=== PATIENT | female | born 1975 | race Caucasian/White ===

== ENCOUNTER 2019-08-14 19:39 | Emergency (ER) | payer OTHER ==
[~2019-08-14] VITALS: Ht 162.6 cm; Wt 94.8 kg
[~2019-08-14 19:39] MED LIST: AMBIEN10 MG PO; BACLOFEN20 MG PO; GLYBURIDE PO; NEU300 PO; VICTOZA6 MG/M1 SQ; XAN1 PO
[2019-08-14 19:52] VITALS: Ht 162.6 cm; Wt 94.8 kg
[2019-08-14 21:18] LABS: CARBON DIOXIDE 25.2 mmol/L (21-32); CHLORIDE SERUM 96 mmol/L (98-107); CREATININE SERUM 0.9 mg/dL (0.6-1.0); GFR1 > 60 mL/min; GLUCOSE SERUM 322 mg/dL (74-106); SODIUM SERUM 135 mmol/L (136-145)
[2019-08-14 21:19] LABS: BASOPHIL % 0 % (0-2); PLATELET COUNT 271 x10^3mcL (130-400); RED CELL DISTRIBUTION WIDTH 13.3 % (11.5-14.5)
[2019-08-14 21:22] LABS: ALBUMIN 4.2 g/dL (3.4-5.0); ALKALINE PHOSPHATASE 130 U/L (46-116); ALT/SGPT 26 U/L (14-59); AST/SGOT 11 U/L (15-37); BILIRUBIN TOTAL 0.8 mg/dL (0.20-1.00); LIPASE 97 IU/L (73-393)
[2019-08-14 21:23] LABS: TOTAL PROTEIN, SERUM 8.9 g/dL (6.4-8.2)
[2019-08-14 23:42] VITALS: BP 160/87
== END 2019-08-14 23:42 | disposition home or self-care (01) ==
LOC: ED 19:39
PROVIDERS: Emergency Medicine
DX: K29.70 Gastritis, unspecified, without bleeding (principal); E11.9 Type 2 diabetes mellitus without complications; E78.00 Pure hypercholesterolemia, unspecified; Z90.710 Acquired absence of both cervix and uterus
CPT/HCPCS: J2270; J2405; J7030

== ENCOUNTER 2019-11-09 22:01 | Emergency (ER) | payer OTHER ==
[~2019-11-09] VITALS: Ht 165.1 cm; Wt 94.3 kg
[2019-11-09 22:11] VITALS: Ht 165.1 cm; Wt 94.3 kg
[2019-11-10 00:27] LABS: PLATELET COUNT 284 x10^3mcL (130-400); RED CELL DISTRIBUTION WIDTH 13.3 % (11.5-14.5)
[2019-11-10 00:29] LABS: BASOPHIL % 1.7 % (0-2)
[2019-11-10 00:33] LABS: CALCIUM 8.8 mg/dL (8.5-10.1); CARBON DIOXIDE 25.6 mmol/L (21-32); CHLORIDE SERUM 95 mmol/L (98-107); CREATININE SERUM 0.8 mg/dL (0.6-1.0); GFR1 > 60 mL/min; GLUCOSE SERUM 287 mg/dL (74-106); POTASSIUM SERUM 3.5 mmol/L (3.5-5.1); SODIUM SERUM 133 mmol/L (136-145)
[2019-11-10 00:38] LABS: ALBUMIN 4.1 g/dL (3.4-5.0); ALKALINE PHOSPHATASE 93 U/L (46-116); ALT/SGPT 17 U/L (14-59); AST/SGOT 11 U/L (15-37); TOTAL PROTEIN, SERUM 8.2 g/dL (6.4-8.2)
[2019-11-10 01:15] VITALS: BP 152/51
== END 2019-11-10 01:15 | disposition home or self-care (01) ==
LOC: ED 22:01
PROVIDERS: Emergency Medicine
DX: R11.2 Nausea with vomiting, unspecified (principal); R10.9 Unspecified abdominal pain; E86.0 Dehydration; F12.90 Cannabis use, unspecified, uncomplicated
CPT/HCPCS: J2270; J2405; J7030

== ENCOUNTER 2019-11-11 20:44 | Emergency (ER) | payer OTHER ==
[~2019-11-11] VITALS: Ht 165.1 cm; Wt 92.1 kg
[2019-11-11 21:02] VITALS: Ht 165.1 cm; Wt 92.1 kg
[2019-11-11 22:49] LABS: BASOPHIL % 0.8 % (0-2); PLATELET COUNT 290 x10^3mcL (130-400); RED CELL DISTRIBUTION WIDTH 13.3 % (11.5-14.5)
[2019-11-11 22:55] LABS: CALCIUM 8.1 mg/dL (8.5-10.1); CARBON DIOXIDE 27.7 mmol/L (21-32); CREATININE SERUM 1.1 mg/dL (0.6-1.0); POTASSIUM SERUM 3.2 mmol/L (3.5-5.1)
[2019-11-11 22:59] LABS: ALBUMIN 3.6 g/dL (3.4-5.0); BILIRUBIN TOTAL 0.6 mg/dL (0.20-1.00)
[2019-11-11 23:39] LABS: AMPHETAMINE QUAL UR NONE DETECTED (See below)
[2019-11-12 00:49] VITALS: BP 106/75
== END 2019-11-12 00:49 | disposition home or self-care (01) ==
LOC: ED 20:44
PROVIDERS: Emergency Medicine
DX: F19.10 Other psychoactive substance abuse, uncomplicated (principal); E87.6 Hypokalemia; E86.0 Dehydration; E11.9 Type 2 diabetes mellitus without complications
CPT/HCPCS: 36415; 82962; J1885; J2765; U0003-CS

== ENCOUNTER 2019-12-30 14:59 | Emergency (ER) | payer OTHER ==
[~2019-12-30] VITALS: Ht 172.7 cm; Wt 93.4 kg
[2019-12-30 15:10] VITALS: Ht 172.7 cm; Wt 93.4 kg
[2019-12-30 15:52] LABS: microscopic required? NO
[2019-12-30 16:27] LABS: BASOPHIL % 0.3 % (0-2); PLATELET COUNT 253 x10^3mcL (130-400); RED CELL DISTRIBUTION WIDTH 13.8 % (11.5-14.5)
[2019-12-30 16:29] LABS: UA SPECIFIC GRAVITY 1.025 (1.005-1.035); urine erythrocyte NEGATIVE (NEGATIVE)
[2019-12-30 16:48] LABS: ALBUMIN 3.8 g/dL (3.4-5.0); ALKALINE PHOSPHATASE 86 U/L (46-116); ALT/SGPT 14 U/L (14-59); AST/SGOT 10 U/L (15-37); BILIRUBIN TOTAL 0.6 mg/dL (0.20-1.00); CALCIUM 8.7 mg/dL (8.5-10.1); CARBON DIOXIDE 24.1 mmol/L (21-32); CHLORIDE SERUM 101 mmol/L (98-107); CREATININE SERUM 0.8 mg/dL (0.6-1.0); GFR1 > 60 mL/min; GLUCOSE SERUM 242 mg/dL (74-106); SODIUM SERUM 136 mmol/L (136-145); TRIGLYCERIDES 101 mg/dL (<150)
[2019-12-30 16:53] LABS: CHOLESTEROL 210 mg/dL (<200); CHOLESTEROL/HDL RATIO 3.1; HDL CHOLESTEROL 67 mg/dL (40-60)
[2019-12-30 16:56] LABS: AMPHETAMINE QUAL UR NONE DETECTED (See below)
[2019-12-30 18:30] VITALS: BP 146/62
== END 2019-12-30 19:13 | disposition home or self-care (01) ==
LOC: ED 14:59
PROVIDERS: Specialist
DX: R10.11 Right upper quadrant pain (principal); G89.29 Other chronic pain; E11.9 Type 2 diabetes mellitus without complications; E78.00 Pure hypercholesterolemia, unspecified; Z90.710 Acquired absence of both cervix and uterus
CPT/HCPCS: 83880; 84439; G0480; J1885; Q0162